=== PATIENT | female | born 1970 | race Caucasian/White ===

== ENCOUNTER 2019-10-06 21:26 | Emergency (ER) | payer OTHER ==
[~2019-10-06] VITALS: Ht 170.2 cm; Wt 66.2 kg
[2019-10-06 21:30] VITALS: BP 112/74
--- NOTE | 2019-10-06 21:35 | NUR ---
PT AMBULATED TO BED #9
--- NOTE | 2019-10-06 21:40 | NUR ---
CARROLL TRIPP AT BEDSIDE.
--- NOTE | 2019-10-06 21:40 | NUR ---
PT 49 Y/O FEMALE BIB SELF FOR C/O L WRIST PAIN SINCE SEP 23. PER PT SHE WENT TO HOSPITAL ON AND RECVIED A ARM BRACE BUT SWELLING AND PAIN HAS PERSISTED. SKIN IS WARM AND DRY TO TOUCH. NO REDNESS NOTED IN L WRIST. SLIGHT SWELLING IN L WRIST NOTED. PAIN IS 8/10 AND RADIATESDOWN WRIST. AFEBRILE. DENIES COUGH. DENIES N/V/D. PT SITTING UP IN BED AAO X 4 AND EYES OPEN. MED HX: RA ALLERGIES: PCN
[2019-10-06] MEDS ORDERED: DEXAMETHASONE 10 MG/ML VIAL IM ONE (21:50)
[2019-10-06] MEDS ORDERED: KETOROLAC 30 MG/ML VIAL IM ONE (21:50)
[2019-10-06 22:35] VITALS: BP 112/74
== END 2019-10-06 22:35 | disposition home or self-care (01) ==
LOC: MED 21:26
DX: M25.532 Pain in left wrist (principal); F17.210 Nicotine dependence, cigarettes, uncomplicated; Z88.0 Allergy status to penicillin
CPT/HCPCS: 96372; 99283; J1100; J1885